=== PATIENT | female | born 1995 | race Caucasian/White ===

== ENCOUNTER 2019-01-25 20:24 | Emergency (ER) | payer OTHER ==
[2019-01-25] MEDS: IBUPROFEN 600 MG TAB PO (21:42)
== END 2019-01-25 23:03 | disposition home or self-care (01) ==
LOC: FTE 20:24
DX: S93.401A Sprain of unspecified ligament of right ankle, initial encounter (principal); W18.30XA Fall on same level, unspecified, initial encounter; Y92.9 Unspecified place or not applicable
CPT/HCPCS: 73610; 73610-RT; 81025; 99283-25